=== PATIENT | male | born 1980 | race Caucasian/White ===

== ENCOUNTER 2016-09-27 09:30 | Inpatient (IN) | payer OTHER ==
[~2016-09-27] VITALS: Ht 185.4 cm; Wt 99.3 kg
[2016-09-27] MEDS ORDERED: CLONAZEPAM0.125 M1 PO (10:06)
[2016-09-27] MEDS ORDERED: OXYCODONE-ACET1 EAC1 PO (10:07)
[2016-09-27] MEDS ORDERED: FLUOXETINE HCL20 M2 PO (10:07)
--- NOTE | 2016-09-27 10:38 | ED UPPER/LOWER EXTREMITY COMPL ---
History of Present Illness General Chief Complaint: Low Back Pain/Injury Stated Complaint: BACK/ARMS PAIN Source: patient, family Exam Limitations: no limitations Vital Signs & Intake/Output Vital Signs & Intake/Output Vital Signs Date Time Temp Pulse Resp B/P Pulse O2 O2 Flow FiO2 Ox Delivery Rate 09/27 1517 98.6 104 18 118/74 99 Room Air 09/27 1328 138/80 09/27 1053 98.3 89 18 132/80 100 Room Air 09/27 0945 97.2 104 20 127/83 97 Room Air Allergies Coded Allergies: No Known Allergies (09/27/16) Reconcile Medications Clonazepam 0.125 MG TAB.RAPDIS 1 TAB PO DAILY ANXIETY (Reported) Fluoxetine HCl 20 MG CAPSULE 3 CAP PO DAILY MENTAL HEALTH (Reported) Oxycodone HCl/Acetaminophen (Oxycodone-Acetaminophen 10-325) 10 MG-325 MG TABLET 1 TAB PO Q4P PRN PAIN (Reported) Triage Note: PT C/O LEFT LOWER BACK PAIN AND LEFT ARM PAIN SINCE FRIDAY. STATES PAIN WENT AWAY WITH HEATING PAD AND TYLENOL BUT CAME BACK AND WAS UNABLE TO SLEEP LAST NIGHT. PT HAD RECENT ABSCESS DRAINED BY DR PERDUE IN LEFT LEG Triage Nurses Notes Reviewed? yes HPI: 35-year-old male with multiple medical complaints. He states that 2 weeks ago he had an abscess drained from his left proximal calf region. It was a large abscess and significantly painful. He has been on 10 mg Percocet since then. He states that he could not walk much and spent most of the time in the bed and his leg was largely swollen. Approximately 3 or 4 days ago patient noted a significant improvement in the swelling in his legs however he started getting some right-sided mid to low back pain along with right-sided shoulder pain anterior aspect. The next day he then developed intermittent left-sided shoulder pain and pain into the anterior chest region that was worse when he was taking a deep breath. He also experiences mild dyspnea on exertion. He denies any cough or hemoptysis. His calf pain from his surgery has resolved completely. He was seen by his orthopedist yesterday who recommended that if his symptoms continue to go to the ER. There is no history of DVT or PE in the family. He denies any fever or flulike illness. The Percocet has been minimally effective for his pain (GERARDO WEATHERSCHICO) Past History Travel History Traveled to [place] past 21 day No Medical History Any Pertinent Medical History? see below for history Psychiatric: anxiety Surgical History Surgical History: LEFT CALF ABSCESS i&d Psychosocial History What is your primary language Latvian Tobacco Use: Never used ETOH Use: occasional use Illicit Drug Use: denies illicit drug use Family History Hx Contributory? No (CHICO JONES) Review of Systems Review of Systems Constitutional: Reports: see HPI. EENTM: Reports: no symptoms. Respiratory: Reports: no symptoms. Gastrointestinal/Abdominal: Reports: no symptoms. Genitourinary: Reports: no symptoms. Skin: Reports: no symptoms. Neurological/Psychological: Reports: no symptoms. Hematologic/Endocrine: Reports: no symptoms. Immunological: Reports: no symptoms. All Other Systems: Reviewed and Negative (CHICO JONES) Physical Exam Physical Exam General Appearance: well developed/nourished, anxious, mild distress Head: atraumatic Eyes: Bilateral: PERRL, EOMI. Ears, Nose, Throat: normal pharynx, normal ENT inspection, hearing grossly normal Neck: normal inspection, supple Cardiovascular/Respiratory: normal breath sounds, no respiratory distress, tachycardia Back: normal inspection Leg Left: normal range of motion, normal inspection, HEALED ABSCESS SITE LEFT SUPERIOR POSTERIOR MEDIAL CALF REGION Skin: intact, normal color, warm/dry Lymphatic: no anterior cervical louie Comments: Low back with mild right-sided paravertebral lumbar tenderness. Range of motion is full. No rashes. No midline tenderness. (CHICO JONES) Progress Differential Diagnosis: arterial insufficiency, cellulitis, CHF, compartment syndrome, contusion, dislocation, DVT, fracture, gout, septic arthritis, sprain, tendon injury Plan of Care: Orders Procedure Date/time Status CBC WITHOUT DIFFERENTIAL 09/28 06 Active BASIC ELECTROLYTES PLUS BUN&CR 09/28 06 Active Regular Diet 09/27 L Complete Heart Healthy Diet 09/27 D Active Add-on Test (ER Only) 09/27 1511 Active Pathway - chart 09/27 1510 Active House Staff 09/27 1510 Active Patient Data 09/27 1510 Active ECHOCARDIOGRAM 09/27 1510 Active Admit to inpatient 09/27 1458 Active Vital Signs 09/27 1458 Active Code Status 09/27 1458 Active Admit to inpatient 09/27 1438 Active Patient Data 09/27 1416 Active PARTIAL THROMBOPLASTIN TIME 09/27 1038 Complete PROTHROMBIN TIME 09/27 1038 Complete EKG 09/27 1038 Active Saline Lock 09/27 1033 Active TROPONIN LEVEL 09/27 1033 Complete COMPREHENSIVE METABOLIC PANEL 09/27 1033 Complete CBC WITHOUT DIFFERENTIAL 09/27 1033 Complete B-TYPE NATRIURETIC PEP (BNP) 09/27 1033 Complete Intake & Output 09/27 1002 Active Telemetry/Order Processing Clerk 09/27 UNK Active Hemoccult 09/27 UNK Active Current Medications Sig/Cristina Start time Last Medication Dose Stop Time Status Admin Fluoxetine HCl 60 MG AT BEDTIME 09/27 2200 AC (Prozac) Acetaminophen 650 MG Q6P PRN 09/27 151 AC (Tylenol) Acetaminophen 1,000 MG Q6P PRN 09/27 1515 AC (Ofirmev) Clonazepam 0.125 MG DAILY NEEDED 09/27 151 AC (KlonoPIN) 10/04 151 Oxycodone/ 1 TAB Q6P PRN 09/27 151 AC Acetaminophen (Percocet) Laboratory Tests 09/27/16 1038: Anion Gap 14, Estimated GFR > 60, BUN/Creatinine Ratio 20.0, Glucose 104 H, Calcium 9.8, Total Bilirubin 1.1, AST 22, ALT 52, Alkaline Phosphatase 55, Troponin I < 0.01, Hby-B-Ttwzondhzfp Pept 36.5, Total Protein 7.5, Albumin 4.4, Globulin 3.1, Albumin/Globulin Ratio 1.4, PT 12.6 H, INR 1.20 H, APTT 33, CBC w Diff NO MAN DIFF REQ, RBC 4.55 L, MCV 86.5, MCH 28.9, RDW 12.4, MPV 9.0, Gran % 76.4 H, Lymphocytes % 12.9 L, Monocytes % 9.9 H, Eosinophils % 0.5, Basophils % 0.3, Absolute Granulocytes 8.4 H, Absolute Lymphocytes 1.4, Absolute Monocytes 1.1 H, Absolute Eosinophils 0.1, Absolute Basophils 0, PUBS MCHC 33.4 Diagnostic Imaging: Viewed by Me: CT Scan, Ultrasound. Discussed w/RAD: CT Scan, Ultrasound. Radiology Impression: PATIENT: DMITRY PADILLA PRESENT AGE: 35 PATIENT ACCOUNT NO: [id number] : 82 LOCATION: [facility] ORDERING PHYSICIAN: CHICO WEATHERS SERVICE DATE: 09/27/16 EXAM TYPE: CAT - CTA CHEST-PULMONARY EMBOLISM EXAMINATION: CT ANGIOGRAM CHEST WITHOUT AND WITH CONTRAST (CT PULMONARY ANGIOGRAM FOR PE) CLINICAL INFORMATION: Shortness of breath, tachycardia, chest pain. COMPARISON: None TECHNIQUE: Prior to contrast administration, noncontrast localization images were obtained. Subsequently, multidetector volumetric imaging was performed from the thoracic inlet to below the diaphragms following the administration of 120 mL Optiray 380 intravenous contrast. No contrast reaction reported. Sagittal, coronal, and MIP oblique sagittal reformatted images were obtained on the CT workstation, uploaded to PACS, and reviewed. TOTAL EXAM DLP: 1072 mGy-cm FINDINGS: QUALITY OF STUDY/ CONTRAST BOLUS: Satisfactory after repeat with shorter delay. PULMONARY ARTERIES : Pulmonary emboli are present within right posteromedial and anterolateral lower lobe segmental arteries. In addition, there is an embolus in the apical pulmonary arterial segment to the right upper lobe. No central PE or left-sided emboli are demonstrated. THORACIC AORTA: No aneurysm or dissection. LUNG: There is consolidation in the left lower lobe with ill-defined peripheral opacity in the lingula anteriorly and the posterior right lung base which may represent multifocal pneumonia and/or atelectasis. PLEURA: Trace bilateral pleural effusions. MEDIASTINUM: Normal heart size. No pericardial effusion. No hilar or mediastinal lymphadenopathy. No evidence of septal bowing or right heart strain. CHEST WALL/AXILLA: No axillary or internal mammary lymphadenopathy. OSSEOUS STRUCTURES: No acute or suspicious osseous abnormality. UPPER ABDOMEN: Unremarkable. No reflux of contrast into the hepatic veins to suggest elevated right heart pressures. This critical result was discussed with Dr. Lara at 1:05 PM on 09/27/2016 and it was ascertained that the content and urgency of the report was understood at the time of direct communication. IMPRESSION: Positive pulmonary embolism study with segmental emboli in the right lower lobe and right upper lobe pulmonary arterial branches. Multifocal consolidation and/or atelectasis, most prominent at the left lung base, with trace bilateral pleural effusions. VTE: Positive DICTATED BY: KEARA THAPA MD DATE/TIME DICTATED: 09/27/161300 ASSESSMENT EXPERT:SIMEON DATE/TIME TRANSCRIBED:09/27/161300 , SERVICE DATE: 09/27/16 EXAM TYPE: US - US-EXT BILAT VENOUS DOPPLER EXAMINATION: US TRIPLEX LOWER EXTREMITY, BILATERAL CLINICAL INFORMATION: Positive pulmonary embolus on CTA chest. Assess for DVT. COMPARISON: CT of the chest obtained earlier 09/27/2016. TECHNIQUE: Color-flow triplex imaging with spectral analysis and compression Doppler were performed on the bilateral lower extremities. FINDINGS: Right lower extremity: Respiratory variation, normal compression and augmented flow are noted throughout the right lower extremity. The visualized common femoral vein, superficial femoral vein, profunda femoral vein, popliteal vein and midcalf peroneal and posterior tibial venous segments show no evidence of deep venous thrombosis. There is no focal fluid collection. Left lower extremity: Respiratory variation, normal compression and augmented flow are noted in the visualized visualized common femoral vein, superficial femoral vein , profunda femoral vein and popliteal vein. The mid calf peroneal and posterior tibial venous segments do not show flow, and the findings are consistent with deep vein thrombosis in the calf veins. There is no focal fluid collection. IMPRESSION: 1. There is evidence of deep vein thrombosis in the left calf veins. No other thrombus is demonstrated in the left lower extremity. 2. Normal Triplex scan without evidence of deep venous thrombosis involving the right lower extremity. 3. There are no focal fluid collections. 4. This critical result was discussed with Chico Long by telephone on 09/27/2016 at 2:25 PM and it was ascertained that the content and urgency of the report was understood at the time of direct communication. DICTATED BY: GUSTAVO GR MD DATE/TIME DICTATED: 1441 ASSESSMENT EXPERT:SIMEON Initial ED EKG: NSR, rate (99), nonspecific ST T wave chg (INF) Rhythm Strip: normal sinus rhythm (90-100BPM) Comments: Concern for pulmonary embolism, patient recent procedure and was immobile for a while, had a significant amount of leg swelling. The patient which has now resolved however after the swelling resolves he started getting his vague symptoms of chest pain and back pain Along with dyspnea on exertion . He denies any cough or fever. We'll CTA Patient became anxious especially with blood draw, he had a mild near vasovagal syncope. He was given 0.5 mg of Ativan IV Discussed with patient laboratory values and ekg unremarkable, awaiting CT scan. CTA positive for pulmonary embolisms 2 on the right side. Discussed the patient and his mother. We'll place on heparin IV, rectal exam was deferred, discussed risks of anticoagulation (CHICO JONES) Departure Departure Disposition: STILL A PATIENT Condition: Stable Clinical Impression Primary Impression: Pulmonary embolus, right Secondary Impressions: Left leg DVT Qualifiers: Affected thrombotic vein of extremity: unspecified lower extremity distal vein Chronicity: acute Qualified Code: I82.4Z2 - Acute embolism and thrombosis of unspecified deep veins of left distal lower extremity Referrals: JULIA JIANG,NICKY Tripp (PCP/Family) Departure Forms: Customer Survey General Discharge Information Admission Note Spoke With: ABRAHAM ROWE MD Documentation of Exam: Documentation of any treatments & extenuating circumstances including Concerns Regarding Discharge (functional status, medication knowledge or non-compliance, living conditions, etc.) that warrant an admission rather than observation: Positive PE 2 right side. Will need anticoagulation, cardiac monitoring, echo, bilateral venous ultrasounds and coagulation workup. (CHICO JONES) PA/RUBBER MILL OPERATOR Co-Sign Statement Statement: ED Attending supervision documentation- [X] I saw and evaluated the patient. I have also reviewed all the pertinent lab results and diagnostic results. I agree with the findings and the plan of care as documented in the PA's/RUBBER MILL OPERATOR's documentation. [] I have reviewed the ED Record and agree with the PA's/RUBBER MILL OPERATOR's documentation. [] Additions or exceptions (if any) to the PAs/RUBBER MILL OPERATOR's note and plan are summarized below: [] I've seen and personally examined the patient and I agree with the PAs evaluation. He is in no significant distress. CT scan shows pulmonary embolism. (NICOLÁS CHRISTIANSON,RYLAND Raman) Critical Care Note Critical Care Note Critical Care Time: 30-74 min Comments: FRANKO LARA (CHICO JONES)
[2016-09-27 10:54] LABS: ABSOLUTE BASOPHIL COUNT 0 /CUMM (0.0-0.2); ABSOLUTE EOSINOPHIL COUNT 0.1 /CUMM (0.0-0.7); ABSOLUTE GRANULOCYTE CT 8.4 /CUMM (1.4-6.5); ABSOLUTE LYMPH COUNT 1.4 /CUMM (1.2-3.4); ABSOLUTE MONOCYTE COUNT 1.1 /CUMM (0.10-0.60); BASOPHIL % 0.3 % (0.0-2.0); EOSINOPHIL % 0.5 % (0-5); GRANULOCYTE % 76.4 % (42.2-75.2); HEMATOCRIT 39.3 % (42-52); MEAN CORPUSCULAR HGB 28.9 PG (27.0-31.0); MEAN CORPUSCULAR HGB CONC 33.4 G/DL (33.0-37.0); MEAN CORPUSCULAR VOLUME 86.5 FL (80.0-94.0); PLATELET COUNT 204 /CUMM (130-400); RBC DISTRIBUTION WIDTH 12.4 % (11.5-14.5); RED BLOOD CELL CT 4.55 /CUMM (4.70-6.10); WHITE BLOOD CELL COUNT 10.9 /CUMM (4.8-10.8)
--- NOTE | 2016-09-27 13:25 | CT SCAN REPORT ---
EXAMINATION: CT ANGIOGRAM CHEST WITHOUT AND WITH CONTRAST (CT PULMONARY ANGIOGRAM FOR PE) CLINICAL INFORMATION: Shortness of breath, tachycardia, chest pain. COMPARISON: None TECHNIQUE: Prior to contrast administration, noncontrast localization images were obtained. Subsequently, multidetector volumetric imaging was performed from the thoracic inlet to below the diaphragms following the administration of 120 mL Optiray 380 intravenous contrast. No contrast reaction reported. Sagittal, coronal, and MIP oblique sagittal reformatted images were obtained on the CT workstation, uploaded to PACS, and reviewed. TOTAL EXAM DLP: 1072 mGy-cm FINDINGS: QUALITY OF STUDY/CONTRAST BOLUS: Satisfactory after repeat with shorter delay. PULMONARY ARTERIES: Pulmonary emboli are present within right posteromedial and anterolateral lower lobe segmental arteries. In addition, there is an embolus in the apical pulmonary arterial segment to the right upper lobe. No central PE or left-sided emboli are demonstrated. THORACIC AORTA: No aneurysm or dissection. LUNG: There is consolidation in the left lower lobe with ill-defined peripheral opacity in the lingula anteriorly and the posterior right lung base which may represent multifocal pneumonia and/or atelectasis. PLEURA: Trace bilateral pleural effusions. MEDIASTINUM: Normal heart size. No pericardial effusion. No hilar or mediastinal lymphadenopathy. No evidence of septal bowing or right heart strain. CHEST WALL/AXILLA: No axillary or internal mammary lymphadenopathy. OSSEOUS STRUCTURES: No acute or suspicious osseous abnormality. UPPER ABDOMEN: Unremarkable. No reflux of contrast into the hepatic veins to suggest elevated right heart pressures. This critical result was discussed with Dr. Lara at 1:05 PM on 09/27/2016 and it was ascertained that the content and urgency of the report was understood at the time of direct communication. IMPRESSION: Positive pulmonary embolism study with segmental emboli in the right lower lobe and right upper lobe pulmonary arterial branches. Multifocal consolidation and/or atelectasis, most prominent at the left lung base, with trace bilateral pleural effusions. VTE: Positive
--- NOTE | 2016-09-27 14:48 | ULTRASOUND REPORT ---
EXAMINATION: US TRIPLEX LOWER EXTREMITY, BILATERAL CLINICAL INFORMATION: Positive pulmonary embolus on CTA chest. Assess for DVT. COMPARISON: CT of the chest obtained earlier 09/27/2016. TECHNIQUE: Color-flow triplex imaging with spectral analysis and compression Doppler were performed on the bilateral lower extremities. FINDINGS: Right lower extremity: Respiratory variation, normal compression and augmented flow are noted throughout the right lower extremity. The visualized common femoral vein, superficial femoral vein, profunda femoral vein, popliteal vein and midcalf peroneal and posterior tibial venous segments show no evidence of deep venous thrombosis. There is no focal fluid collection. Left lower extremity: Respiratory variation, normal compression and augmented flow are noted in the visualized visualized common femoral vein, superficial femoral vein, profunda femoral vein and popliteal vein. The mid calf peroneal and posterior tibial venous segments do not show flow, and the findings are consistent with deep vein thrombosis in the calf veins. There is no focal fluid collection. IMPRESSION: 1. There is evidence of deep vein thrombosis in the left calf veins. No other thrombus is demonstrated in the left lower extremity. 2. Normal Triplex scan without evidence of deep venous thrombosis involving the right lower extremity. 3. There are no focal fluid collections. 4. This critical result was discussed with Chico Long by telephone on 09/27/2016 at 2:25 PM and it was ascertained that the content and urgency of the report was understood at the time of direct communication.
--- NOTE | 2016-09-27 15:03 | History & Physical ---
ZARIA GIORDANO 09/27/16 1502: General Information and HPI MD Statement: I have seen and personally examined DMITRY PADILLA and documented this H&P. The patient is a 35 year old M who presented with a patient stated chief complaint of [chest pain]. Source of Information: patient, family Exam Limitations: no limitations History of Present Illness: Mr. Padilla is a 35 year old woman with significant past medical history of anxiety disorder and obsessive-compulsive disorder, who presented to the hospital emergency department complaining of chest pain, back pain associated with some dyspnea. He states that approximately 2 weeks ago he had an abscess drained on his left posterior calf. Due to the pain, he states that for around 1.5 weeks he was bedbound and stayed out of work. He states that he had family and friends help him up until 2 days ago where the pain was well-controlled. He states that he ran some errands and noticed that he had right-sided back pain. The pain worsened, and eventually radiated to the left side of his chest and arm. He saw his orthopedic surgeon yesterday who gave him 4 tablets of Percocet and advised him to come the emergency department if his pain worsened. The patient states that his chest pain was dull and deep in nature, worse with deep inspiration and not exacerbated by exercise. Not positional. No pain with baseline breathing. He also endorses mild dyspnea on exertion. He denies any cough or hemoptysis. He denies any more leg pain. Family hx is positive for a maternal aunt w a DVT (she was in the [employer] and flew without ambulation to [place] multiple times). No other FHx of clotting or bleeding disorders. Social hx -ve for smoking or alcohol intake. In the emergency department Vitals on admission were temperature 97.2, pulse rate 104, respiratory rate 20, blood pressure 127/83 saturating 97% on room air. Physical exam reveals an age-appropriate gentleman lying in bed in no acute distress. NG exam negative. Heart exam S1-S2 positive, tachycardia noted. No murmurs rubs or gallops noted. Lungs are clear to auscultation but he does have quite inspiration. Abdomen soft nontender. No CVA tenderness. Extremities benign. Healing incision on the left posterior calf. No increased swelling in the left calf compared to the right. No warmth noted. No dilated veins appreciated. Patient denied rectal examination for stool guaiac. Calculated Well's score was 7.5. In the emergency department, labs were significant for H&H 13.1/39.3. White blood cell count 10.9. Basic metabolic panel revealed no abnormality. INR is 1.2. CT of the chest revealed positive pulmonary embolism with segmental emboli in the right lower and upper lobes. Some atelectasis versus consolidation was noted at the lung left base with bilateral trace pleural effusions. Duplex ultrasound revealed evidence of deep vein thrombosis in the left calf veins. Problem list/assessment plan * Acute pulmonary embolism with DVT in the LLE * Evidence of PE and DVT on imaging * Patient has been heparinized based on weight * Titrate according to 2 times the upper limit of normal pTT * Most patients with acute PE can usually be treated in the outpt setting, with anticoagulation (eg. lovenox 1.5mg/kg daily or 1.0 mg/kg BID), but we will assess him for right heart strain with an echocardiogram, so we will admit to inpatient. * Continue IV heparin for now and consider giving lovenox or one of the novel anticoagulants in the outpt setting. * Guiac all stools Anxiety/OCD * Continue fluoxetine and clonazepam home doses FULL CODE regular diet pain path as ordered. Allergies/Medications Allergies: Coded Allergies: No Known Allergies (09/27/16) Home Med list Clonazepam 0.125 MG TAB.RAPDIS 1 TAB PO DAILY ANXIETY (Reported) Fluoxetine HCl 20 MG CAPSULE 3 CAP PO DAILY MENTAL HEALTH (Reported) Oxycodone HCl/Acetaminophen (Oxycodone-Acetaminophen 10-325) 10 MG-325 MG TABLET 1 TAB PO Q4P PRN PAIN (Reported) Past History Travel History Traveled to [place] past 21 day No Medical History Psychiatric: anxiety Surgical History Surgical History: LEFT CALF ABSCESS i&d Past Family/Social History Psychosocial History ETOH Use: occasional use Illicit Drug Use: denies illicit drug use Review of Systems Review of Systems Constitutional: Reports: see HPI. Exam & Diagnostic Data Last 24 Hrs of Vital Signs/I&O Vital Signs Date Time Temp Pulse Resp B/P Pulse O2 O2 Flow FiO2 Ox Delivery Rate 09/27 1517 98.6 104 18 118/74 99 Room Air 09/27 1328 138/80 09/27 1053 98.3 89 18 132/80 100 Room Air 09/27 0945 97.2 104 20 127/83 97 Room Air Intake & Output 09/27 1600 09/27 0800 09/27 0000 Intake Total Output Total Balance Patient 99.337 kg Weight Last 24 Hrs of Labs/Jak: Laboratory Tests 09/27/16 1038: Anion Gap 14, Estimated GFR > 60, BUN/Creatinine Ratio 20.0, Glucose 104 H, Calcium 9.8, Total Bilirubin 1.1, AST 22, ALT 52, Alkaline Phosphatase 55, Troponin I < 0.01, Oel-Y-Adttijyufmc Pept 36.5, Total Protein 7.5, Albumin 4.4, Globulin 3.1, Albumin/Globulin Ratio 1.4, PT 12.6 H, INR 1.20 H, APTT 33, CBC w Diff NO MAN DIFF REQ, RBC 4.55 L, MCV 86.5, MCH 28.9, RDW 12.4, MPV 9.0, Gran % 76.4 H, Lymphocytes % 12.9 L, Monocytes % 9.9 H, Eosinophils % 0.5, Basophils % 0.3, Absolute Granulocytes 8.4 H, Absolute Lymphocytes 1.4, Absolute Monocytes 1.1 H, Absolute Eosinophils 0.1, Absolute Basophils 0, PUBS MCHC 33.4 Assessment/Plan Assessment: see above As Ranked By This Provider Problem List: 1. Pulmonary embolus, right 2. Left leg DVT Qualifiers Affected thrombotic vein of extremity: unspecified lower extremity distal vein Chronicity: acute Qualified Code: I82.4Z2 - Acute embolism and thrombosis of unspecified deep veins of left distal lower extremity Core Measures/Miscellaneous Acute Coronary Syndrome ACS Diagnosis: No Cerebrovascular Accident CVA/TIA Diagnosis: No Congestive Heart Failure CHF Diagnosis: No Venous Thromboembolism VTE Risk Factors: Acute medical illness No [facility] VTE prophylaxis d/t: No contraindications No VTE Pharm Prophylaxis d/t: No contraindications VTE Diagnosis: Yes VTE Type: Pulmonary Embolism VTE Confirmed by (Test): CT CHEST ANGIOGRAM Severe Sepsis Severe Sepsis Present: No Septic Shock Septic Shock Present: No Miscellaneous Documentation Attending Case Discussed With: BARBARA ZAPATA MD Primary Care Physician: NICKY DUMONT MD Patient sees these Specialists na Level of Patient Care: Telemetry ABRAHAM ROWE MD 09/27/16 1638: Attending MD Review Statement Attending Statement Attending MD Statement: examined this patient, discuss w/resident/PA/VARNISH FINISHER, agreed w/resident/PA/VARNISH FINISHER, reviewed EMR data (avail) Attending Assessment/Plan: Agree with resident assessment and plan. Heparin drip, echocardiogram, pain control, monitor oxygen saturation, will convert to PO when improved and echocardiogram complete. Continue home medications.
[2016-09-27 15:27] LABS: PT 12.6 SEC (9.4-12.5); PTT 33 SEC (25-37)
--- NOTE | 2016-09-27 16:39 | Admission Certification ---
Admission Certification Certification Statement - As attending physician, I certify that at the time of - admission, based on clinical presentation, severity of - symptoms, need for further diagnostic testing and - therapeutic interventions, and risk of adverse outcomes - without in-hospital treatment, in my clinical assessment, - this patient requires an acute hospital stay for a minimum - of two nights or longer. I have also considered psychsocial - factors such as support system, advanced age, financial - issues, cognitive issues, and failed out-patient treatments, - past re-admission history, safety of patient, and lack of - compliance as applicable. Specific rationale supporting this admission is: DVT with acute pulmonary embolism and chest pain
[2016-09-27 20:40] VITALS: BP 120/80
[2016-09-27 23:13] LABS: PTT 39 SEC (25-37)
[2016-09-28 00:40] VITALS: BP 104/72
[2016-09-28 08:08] VITALS: BP 110/80
--- NOTE | 2016-09-28 08:20 | PN- Housestaff ---
Subjective Follow-up For: DVT of left calf vein and Pulmonary embolism of right lower lobe and right upper lobe Complaints: no complaints Tele-Events Since Last Visit: Normal sinus rhythm, heart rate 85-91 Subjective: Patient is seen and examined at the bedside. He was feeling much better than before. He denies any difficulty in the breathing. Denies any headache, nausea, chest pain. Review of Systems Constitutional: Denies: no symptoms. Comments: Patient denies any difficulty in the breathing Objective Last 24 Hrs of Vital Signs/I&O Vital Signs Date Time Temp Pulse Resp B/P Pulse O2 O2 Flow FiO2 Ox Delivery Rate 09/28 0808 98.4 79 16 110/80 95 Nasal 2.0L Cannula 09/28 0800 95 Nasal 2.0L Cannula 09/28 0040 98.8 94 18 104/72 95 Room Air 09/28 0000 97 Nasal 2.0L Cannula 09/27 2040 99.2 102 16 120/80 93 Room Air 09/27 1902 99.1 112 16 116/70 92 Room Air Intake & Output 09/28 1600 09/28 0800 09/28 0000 Intake Total 391.2 584 Output Total 400 Balance -400 391.2 584 Intake, IV 271.2 104 Intake, Oral 120 480 Output, Urine 400 Physical Exam General Appearance: Alert, Oriented X3, Cooperative, No Acute Distress Skin: there is 5-10 centimeter hard vein/scar clare on the posterior side of left popliteal fossa HEENT: Atraumatic, PERRLA, EOMI Cardiovascular: Normal S1, Normal S2 Lungs: Normal Air Movement, right middle and lower lobe collapse Abdomen: Soft, No Tenderness Neurological: Normal Speech Extremities: No Clubbing, No Cyanosis, No Edema Vascular: Normal Pulses, Pulses Symmetrical Assessment/Plan Assessment: Patient is a 35-year-old male with significant past medical history of anxiety, OCD who presented to the hospital emergency department complaining of chest pain , back pain associated with some dyspnea.He states that approximately 2 weeks ago he had an abscess drained on his left posterior calf. Due to the pain, he states that for around 1.5 weeks he was bedbound and stayed out of work. CTA chest -Positive pulmonary embolism study with segmental emboli in the right lower lobe and right upper lobe pulmonary arterial branches Plan - DVT of left calf vein and Pulmonary embolism of right lower lobe and right upper lobe * Oxygen inhalation to keep SPO2 more than 92% * We we will start patient on Eliquis 5 milligrams twice a day * We will stop the heparin drip after giving 1 dose of Eliquis * TRC/nebulization * Pain medication-Percocet as needed * Early ambulation Depression - patient denies SI/HI. * Tablet fluoxetine 60 milligrams PO OD * Tablet clonidine 0.125 milligrams daily as needed Diet-heart healthy diet DVT prophylaxis -Eliquis CODE STATUS-full code Problem List: 1. Left leg DVT 2. Pulmonary embolus, right Pain Ratin Pain Location: Chest and left lower leg Pain Goal: Remain pain free Pain Plan: [id number] Tomorrow's Labs & Rationales: none DVT/Prophylaxis: mechanical, pharmacological
[2016-09-28 08:25] LABS: ABSOLUTE BASOPHIL COUNT 0 /CUMM (0.0-0.2); ABSOLUTE EOSINOPHIL COUNT 0.2 /CUMM (0.0-0.7); ABSOLUTE GRANULOCYTE CT 7.1 /CUMM (1.4-6.5); ABSOLUTE LYMPH COUNT 1.6 /CUMM (1.2-3.4); BASOPHIL % 0.4 % (0.0-2.0); EOSINOPHIL % 1.6 % (0-5); GRANULOCYTE % 72.1 % (42.2-75.2); HEMATOCRIT 37.6 % (42-52); MEAN CORPUSCULAR HGB 28.6 PG (27.0-31.0); MEAN CORPUSCULAR HGB CONC 32.8 G/DL (33.0-37.0); MEAN CORPUSCULAR VOLUME 87.2 FL (80.0-94.0); MEAN PLATELET VOLUME 9.6 FL (7.4-10.4); PLATELET COUNT 202 /CUMM (130-400); RBC DISTRIBUTION WIDTH 12.3 % (11.5-14.5); RED BLOOD CELL CT 4.32 /CUMM (4.70-6.10); WHITE BLOOD CELL COUNT 9.9 /CUMM (4.8-10.8)
[2016-09-28 08:36] LABS: PTT 65 SEC (25-37)
--- NOTE | 2016-09-28 13:19 | PN- Att Addend ---
Attending Addendum Attending Brief Note Patient seen and examined. Resting comfortably in bed. Complains of on and off sharp chest pain with movements. His using oxygen for comfort, denies any shortness of breath. This is a 35-year-old male with recent cardiac abscess status post incision and drainage at [facility], which she was bed bound for almost 1-1/2 week because of pain, resented with leg swelling and chest pain, found to have evidence of DVT in the left calf veins, and segmental emboli in right lower lobe and right upper lobe pulmonary arterial branches. Patient is currently on IV heparin drip. Alert, awake, oriented 3 Heart exam-S1, S2 heard normal, no murmur. Lungs: Clear to auscultations Abdomen: Soft, nontender nondistended Extremities: No edema, no tenderness bilateral lower extremities. Surgical scar noted on the left upper calf region. Switch to Eliquis today. Please make sure Eliquis is covered by his insurance prior to switching. Discontinue heparin drip after the first dose of Eliquis. Patient still has ongoing chest pain and some discomfort breathing, we'll continue oxygen for now. Reevaluate the need for oxygen tomorrow morning. Continue Percocet for pain add bowel regimen to avoid constipation. Encourage ambulation. As it is a provoked VTE, we will continue Eliquis for 3 months. Please follow-up the echo results.
[2016-09-28] MEDS ORDERED: ELIQUIS5 M2 PO (14:05)
[2016-09-28 16:15] VITALS: BP 106/58
[2016-09-28 23:34] VITALS: BP 112/70
[2016-09-29 07:45] VITALS: BP 102/82
--- NOTE | 2016-09-29 08:44 | PN- Housestaff ---
See Addendum MJ PARRISH 09/29/16 0844: Subjective Follow-up For: DVT of left calf vein and Pulmonary embolism Complaints: no complaints Tele-Events Since Last Visit: Normal sinus rhythm. Heart rate between 80 and 100. Subjective: Patient was seen and examined today. Patient alert, awake, oriented. No active complaint. Review of Systems Constitutional: Denies: chills, fever, weakness. Cardiovascular: Denies: chest pain, palpitations. Respiratory: Denies: cough, short of breath, wheezing. Gastrointestinal: Denies: abdominal pain, diarrhea, nausea, bloody stool, vomiting. Genitourinary: Denies: hematuria, pain. Objective Last 24 Hrs of Vital Signs/I&O Vital Signs Date Time Temp Pulse Resp B/P Pulse O2 O2 Flow FiO2 Ox Delivery Rate 09/29 0745 98.6 92 16 102/82 93 Nasal 2.0L Cannula 09/29 0000 Nasal 2.0L Cannula 09/28 2334 99.9 89 18 112/70 95 Nasal 2.0L Cannula 09/28 1615 98.2 85 20 106/58 98 Room Air 09/28 1600 98 Room Air Intake & Output 09/29 1600 09/29 0800 09/29 0000 Intake Total 300 400 Output Total Balance 300 400 Intake, IV 0 Intake, Oral 300 400 Number 0 Bowel Movements Physical Exam General Appearance: Alert, Oriented X3, Cooperative, No Acute Distress HEENT: PERRLA, EOMI Neck: Supple Cardiovascular: Regular Rate, Normal S1, Normal S2 Lungs: Normal Air Movement Abdomen: Normal Bowel Sounds, Soft, No Tenderness Extremities: No Cyanosis, No Edema Current Medications: Current Medications Sig/Cristina Start time Last Medication Dose Route Stop Time Status Admin Acetaminophen 650 MG .STK-MED ONE 09/28 1801 DC PO 09/28 1802 Acetaminophen 650 MG Q6P PRN 09/27 1515 AC 09/28 PO 1803 Acetaminophen 1,000 MG Q6P PRN 09/27 1515 AC IV Apixaban 10 MG BID 09/28 1254 AC 09/29 PO 0857 Clonazepam 0.125 MG DAILY NEEDED 09/27 1515 AC 09/27 PO 10/04 1514 2121 Fluoxetine HCl 60 MG AT BEDTIME 09/27 2200 AC 09/28 PO 2139 Heparin Sodium 25,000 UNIT Q24H 09/27 1400 DC 09/27 (Porcine) IV 1518 Sodium Chloride 500 ML Oxycodone/ 1 TAB Q6P PRN 09/27 1515 AC 09/28 Acetaminophen PO 2140 Sodium Chloride 2 SPRAY Q4P PRN 09/29 0915 AC 09/29 ANITHA 1053 Last 24 Hrs of Lab/Jak Results Last 24 Hrs of Labs/Mics: Laboratory Tests 09/28/16 1800: APTT Cancelled Assessment/Plan Assessment: Patient is a 35-year-old male with significant past medical history of anxiety, OCD who presented to the hospital emergency department complaining of chest pain , back pain associated with some dyspnea.He states that approximately 2 weeks ago he had an abscess drained on his left posterior calf. Due to the pain, he states that for around 1.5 weeks he was bedbound and stayed out of work. CTA chest -Positive pulmonary embolism study with segmental emboli in the right lower lobe and right upper lobe pulmonary arterial branches Plan - DVT of left calf vein and Pulmonary embolism of right lower lobe and right upper lobe * Oxygen inhalation to keep SPO2 more than 92% * patient on Eliquis 10 milligrams twice a day * TRC/nebulization as needed. * Pain medication-Percocet as needed * Early ambulation * Echo pending, will DC the p.t as soon as echo result come back. Depression - patient denies SI/HI. * Tablet fluoxetine 60 milligrams PO OD * Tablet clonidine 0.125 milligrams daily as needed DVT prophylaxis -Eliquis CODE STATUS-full code Problem List: 1. Pulmonary embolus, right 2. Left leg DVT Pain Ratin Pain Location: left leg Pain Goal: Pain 4 or less Pain Plan: SAME Tomorrow's Labs & Rationales: NONE HELENA JIANG,[facility] 09/29/16 1145: Attending MD Review Statement Attending Statement Attending MD Statement: examined this patient, discuss w/resident/PA/RENTAL CAR FERRY DRIVER, agreed w/resident/PA/RENTAL CAR FERRY DRIVER, discussed with family, reviewed EMR data (avail), discussed with nursing, discussed with case mgmt, reviewed images, amended to note Attending Assessment/Plan: Patient sitting comfortably on bed. Still on oxygen. We can taper the oxygen down to off. He is not short of breath. Make sure the echo was done today and read, if echo looks okay without any concerns patient can be discharged home today on Eliquis.
--- NOTE | 2016-09-29 08:48 | Patient Discharge Instructions ---
Discharge Instructions General Discharge Information You were seen/treated for: shortness of breath You had these procedures: none Special Instructions: please taking the new blood thinner for the clot in your lung i.e: take Eliqui 10 mg twice daily for 7 days and then 5 mg twice daily for the next 3 months. Please contact your PCP for renewal of Eliquis within one week. PLEASE DO NOT STOP THIS MEDICATION UNTIL YOU SEE YOUR PCP. Acute Coronary Syndrome Inclusion Criteria At DC or during hospital stay patient has or had the following: ACS DIAGNOSIS No Discharge Core Measures Meds if any: Prescribed or Continued at Discharge Meds if any: NOT Prescribed or Continued at Discharge Congestive Heart Failure Inclusion Criteria At DC or during hospital stay patient has or had the following: CHF DIAGNOSIS No Discharge Core Measures Meds if any: Prescribed or Continued at Discharge Meds if any: NOT Prescribed or Continued at Discharge Cerebrovascular accident Inclusion Criteria At DC or during hospital stay patient has or had the following: CVA/TIA Diagnosis No Discharge Core Measures Meds if any: Prescribed or Continued at Discharge Meds if any: NOT Prescribed or Continued at Discharge Venous thromboembolism Inclusion Criteria VTE Diagnosis Yes VTE Type Pulmonary Embolism VTE Confirmed by (Test) CT CHEST ANGIOGRAM Discharge Core Measures - Per Current guidelines, there needs to be overlap - treatment for the first 5 days of Warfarin therapy. - If discharged on Warfarin prior to 5 days of - overlap therapy, the patient will need to be - assessed for post discharge needs including - *Post discharge parental anticoagulation - *Warfarin and/or parental anticoagulation education - *Follow up date to check INR post discharge At least 5 days overlap therapy as Inpatient No Meds if any: Prescribed or Continued at Discharge Note: Overlap Therapy is Warfarin and Anticoagulant Meds if any: NOT Prescribed or Continued at Discharge
--- NOTE | 2016-09-29 15:31 | ECHOCARDIOGRAM REPORT ---
DMITRY PADILLA Age: 35 : 1980 Gender: M Exam Date: 09/29/2016 09:33 Exam Location: [address] Ht (in): 73 Wt (lb): 219 BSA: 2.28 BP: 102 / 82 Ordering Physician: ZARIA GIORDANO MD Referring Physician: ZARIA GIORDANO MD Technologist: Paloma Calzada [facility] Room Number: 188 Indications: ACUTE PULMONARY EMBOLISM Rhythm: Sinus Technical Quality: Good FINDINGS Left Ventricle Normal size left ventricle. Normal left ventricular wall thickness. No obvious regional wall motion abnormalities. Normal left ventricular diastolic filling pattern for age. Right Ventricle Normal right ventricular size and function. Right Atrium Normal right atrial size. Left Atrium Normal left atrial size. Mitral Valve Mild mitral annular calcification. Trace mitral regurgitation. Aortic Valve Aortic valve mildly thickened.no aortic stenosis. No aortic regurgitation. Tricuspid Valve Tricuspid valve not well visualized, grossly normal. Trace tricuspid regurgitation. No evidence of pulmonary hypertension. Pulmonic Valve Pulmonic valve not well visualized, grossly normal. Pericardium No pericardial effusion. Great Vessels Normal size aortic root. CONCLUSIONS Normal size left ventricle. Normal left ventricular wall thickness. Normal left ventricular diastolic filling pattern for age. Trace mitral regurgitation. Trace tricuspid regurgitation. Rainer Levin M.D. (Electronically Signed) Final Date: 29 September 2016 15:30 MEASUREMENTS (Male / Female) Normal Values 2D ECHO LV Diastolic Diameter PLAX 4.8 cm 4.2 - 5.9 / 3.9 - 5.3 cm LV Systolic Diameter PLAX 2.6 cm 2.1 - 4.0 cm LV Fractional Shortening PLAX 45.5 % 25 - 46 % LV Ejection Fraction 2D Teich 76.8 % IVS Diastolic Thickness 1.2 cm LVPW Diastolic Thickness 1.2 cm LV Relative Wall Thickness 0.5 RV Internal Dim ED PLAX 2.7 cm 1.9 - 3.8 cm LVOT Diameter 2.1 cm Aortic Root Diameter 3.2 cm LA Systolic Diameter LX 4.1 cm 3.0 - 4.0 / 2.7 - 3.8 cm LA Volume 38.0 cm 18 - 58 / 22 - 52 cm Ascending Aorta Diameter 3.5 cm DOPPLER AV Peak Velocity 139.0 cm/s AV Peak Gradient 7.7 mmHg AV Mean Velocity 101.0 cm/s AV Mean Gradient 5.0 mmHg AV Velocity Time Integral 27.3 cm LVOT Peak Velocity 124.0 cm/s LVOT Peak Gradient 6.2 mmHg LVOT Mean Velocity 77.9 cm/s LVOT Mean Gradient 3.0 mmHg LVOT Velocity Time Integral 24.5 cm LVOT Stroke Volume 84.9 cm AV Area Cont Eq vti 3.1 cm AV Area Cont Eq pk 3.1 cm MV Peak Velocity 90.3 cm/s MV Peak Gradient 3.3 mmHg MV Mean Velocity 56.8 cm/s MV Mean Gradient 1.0 mmHg Mitral E Point Velocity 82.4 cm/s Mitral A Point Velocity 56.3 cm/s Mitral E to A Ratio 1.5 MV PHT Velocity 92.3 cm/s MV Deceleration Hodgeman 460.0 cm/s MV Pressure Half Time 60.2 ms MV Area PHT 3.7 cm MV Deceleration Time 206.0 ms TR Peak Velocity 107.0 cm/s TR Peak Gradient 4.6 mmHg Right Atrial Pressure 5.0 mmHg Pulmonary Artery Systolic Pressu 9.6 mmHg Right Ventricular Systolic Press 9.6 mmHg PV Peak Velocity 117.0 cm/s PV Peak Gradient 5.5 mmHg PV Mean Velocity 82.2 cm/s PV Mean Gradient 3.0 mmHg PV Velocity Time Integral 25.9 cm LV E' Lateral Velocity 13.6 cm/s Mitral E to LV E' Lateral Ratio 6.1 LV E' Septal Velocity 8.2 cm/s Mitral E to LV E' Septal Ratio 10.1
[2016-09-29] MEDS ORDERED: ELIQUIS5 M2 PO ×3 (15:40→15:56)
--- NOTE | 2016-10-08 22:44 | Discharge Summary ---
Visit Information Visit Dates Admission Date: 09/27/16 Discharge Date: 09/29/16 Hospital Course Course Attending Physician: BARBARA ZAPATA MD Primary Care Physician: NICKY DUMONT MD Hospital Course: Mr. Toscano is a 35 year old woman with significant past medical history of anxiety disorder and obsessive-compulsive disorder, who presented to the hospital emergency department complaining of chest pain, back pain associated with some dyspnea secondary to pulmonary embolism. The patient was admitted to the telemtery unit where the following problems were addressed and managed. # Acute pulmonary embolism with DVT in the LLE CTA revealed positive pulmonary embolism with segmental emboli in the right lower lobe and right upper lobe pulmonary arterial branches. Venous doppler of the legs showed evidence of deep vein thrombosis in the left calf veins. No other thrombus is demonstrated in the left lower extremity. The patient was placed on heparin drip which was transitioned to Eliquis 5mg BID. Patient's echocardiogram was grossly unremarkable with normal LV size, wall thickness and diastolic filling pattern for age. There were trace mitral regurgitation and trace tricuspid regurgitation. Patient was discharged on Eliquis 10 mg twice daily for 7 days and then 5 mg twice daily for the next 3 months. He was instructed to contact his PCP for renewal of Eliquis within one week. # Anxiety/OCD Patient was kept on home meds fluoxetine and clonazepam. Allergies: Coded Allergies: No Known Allergies (09/27/16) Disposition Summary Disposition Principal Diagnosis: Pulmonary embolism Additional Diagnosis: DVT Discharge Disposition: home or self care Discharge Instructions General Discharge Information Code Status: Full Code Patient's Diet: Heart healthy Patient's Activity: As tolerated Follow-Up Instructions/Appts: please taking the new blood thinner for the clot in your lung i.e: take Eliqui 10 mg twice daily for 7 days and then 5 mg twice daily for the next 3 months. Please contact your PCP for renewal of Eliquis within one week. PLEASE DO NOT STOP THIS MEDICATION UNTIL YOU SEE YOUR PCP. Medications at Discharge Discharge Medications: Stop taking the following medications: Oxycodone HCl/Acetaminophen (Oxycodone-Acetaminophen 10-325) 10 MG-325 MG TABLET ORAL EVERY 4 HOURS NEEDED as needed for PAIN Qty = 4 Continue taking these medications: Clonazepam (Clonazepam) 0.125 MG TAB.RAPDIS 1 Tablet ORAL DAILY Qty = 30 Comments: Last Taken: 09/27/16 Time: 9 PM Fluoxetine HCl (Fluoxetine HCl) 20 MG CAPSULE 3 Capsule ORAL DAILY Qty = 270 Comments: Last Taken: 09/28/16 Time: 9 PM Start taking the following new medications: Apixaban (Eliquis) 5 MG TABLET 0 ORAL TWICE DAILY Days = 30 No Refills Instructions: TAKE 10 MG PO BID FOR 7 DAYS STARTING FROM 09/28/16-10/05/16 THEN AFTERWARDS TAKE 5 MG PO BID FOR THE TOTAL OF 3 MONTHS. Comments: Last Taken: 09/29/16 Time: 9 AM Copies To: JULIA JIANG,NICKY Tripp Attending MD Review Statement Documenting Attending: CESAR ELENA MD
== END 2016-09-29 16:18 | DRG 176 ==
LOC: ENRESERVTM → ENRESERVDT → ERH 09:30 → 1NO 14:58 → ERHI 14:58 → 1NO 19:07
PROVIDERS: Internal Medicine Cardiovascular Disease; Physician Assistant Surgical; Student in an Organized Health Care Education/Training Program; ADMIT Internal Medicine
PROC: 3E033GC Introduction of Other Therapeutic Substance into Peripheral Vein, Percutaneous Approach (ICD-10-PCS; principal; 2016-09-27)
DX: I26.99 Other pulmonary embolism without acute cor pulmonale (principal); I82.4Z2 Acute embolism and thrombosis of unspecified deep veins of left distal lower extremity; F32.9 Major depressive disorder, single episode, unspecified
CPT/HCPCS: 1NP; 36415; 82436; 93005; 93010; 93306; 93970; 96374; 96375; 99291; J0131; J1644

== ENCOUNTER 2018-03-19 06:31 | Emergency (ER) | payer OTHER ==
[~2018-03-19] VITALS: Ht 185.4 cm; Wt 99.8 kg
[~2018-03-19 06:31] MED LIST: CLONAZEPAM0.125 M1 PO; ELIQUIS5 M2 PO; FLUOXETINE HCL20 M2 PO; OXYCODONE-ACET1 EAC1 PO
[2018-03-19 07:14] LABS: ABSOLUTE BASOPHIL COUNT 0 /CUMM (0.0-0.2); ABSOLUTE EOSINOPHIL COUNT 0.2 /CUMM (0.0-0.7); ABSOLUTE GRANULOCYTE CT 4.4 /CUMM (1.4-6.5); ABSOLUTE LYMPH COUNT 2.7 /CUMM (1.2-3.4); ABSOLUTE MONOCYTE COUNT 0.6 /CUMM (0.10-0.60); BASOPHIL % 0.5 % (0.0-2.0); EOSINOPHIL % 2.4 % (0-5); GRANULOCYTE % 55.3 % (42.2-75.2); HEMATOCRIT 45.5 % (42-52); MEAN CORPUSCULAR HGB CONC 33.6 G/DL (33.0-37.0); MEAN CORPUSCULAR VOLUME 86.4 FL (80.0-94.0); MEAN PLATELET VOLUME 10.3 FL (7.4-10.4); PLATELET COUNT 194 /CUMM (130-400); RED BLOOD CELL CT 5.26 /CUMM (4.70-6.10)
--- NOTE | 2018-03-19 07:18 | ED GENERAL ADULT ---
History of Present Illness General Chief Complaint: General Adult Stated Complaint: "REALLY BAD LOWER BACK PAIN HX PE" Source: patient Exam Limitations: no limitations Vital Signs & Intake/Output Vital Signs & Intake/Output Vital Signs Date Time Temp Pulse Resp B/P B/P Pulse O2 O2 Flow FiO2 Mean Ox Delivery Rate 03/19 1015 76 124/84 03/19 0847 98.0 68 16 124/78 100 Room Air 03/19 0704 96 Room Air Room Air 03/19 0640 96.3 76 18 115/77 96 Allergies Coded Allergies: No Known Allergies (09/27/16) Reconcile Medications Clonazepam 0.125 MG TAB.RAPDIS 1 TAB PO DAILY PRN ANXIETY (Reported) Fluoxetine HCl 20 MG CAPSULE 3 CAP PO DAILY MENTAL HEALTH (Reported) Triage Note: 37YO MALE TO TRIAGE W/CO LOW BACK PAIN SINCE LAST NIGHT. STQTES " HS PE 1 1/2 YR AGO AND SYMPTOMS WERE THE SAME" Triage Nurses Notes Reviewed? yes Onset: Abrupt Duration: day(s): Timing: recent history HPI: 03/19/18 7:35 AM 37-year-old male presents to the emergency department with severe right upper back pain. The patient states that he has a history of pulmonary embolism. He says the pain is exactly like his prior PE. He denies any shortness of breath or fever. No cough. He says that approximately 2 years ago after having knee surgery he developed a pulmonary embolism. He had been on Eliquis for 9 months. He is no longer on anticoagulants. He has no drug allergies. His past surgical history significant for knee surgery 2 years ago. He also has a history of anxiety. He is currently on Prozac and Klonopin. Past History Travel History Traveled to [place] past 21 day No Medical History Any Pertinent Medical History? see below for history Neurological: NONE EENT: NONE Cardiovascular: NONE Respiratory: pulmonary embolism Gastrointestinal: NONE Hepatic: NONE Renal: NONE Musculoskeletal: NONE Psychiatric: anxiety, OCD Endocrine: NONE Blood Disorders: NONE Cancer(s): NONE SAMPLE CHECKER/Reproductive: NONE History of MRSA: No History of VRE: No History of CDIFF: No Surgical History Surgical History: LEFT CALF ABSCESS i&d Psychosocial History Who do you live with Patient/Self Services at Home None What is your primary language Russian Tobacco Use: Never used Family History Hx Contributory? No Review of Systems Review of Systems Constitutional: Denies: fever. EENTM: Denies: visual changes. Respiratory: Denies: cough, short of breath. Cardiovascular: Denies: chest pain. GI: Denies: abdominal pain. Genitourinary: Reports: no symptoms. Musculoskeletal: Reports: back pain. Skin: Denies: rash. Neurological/Psychological: Reports: see HPI. Hematologic/Endocrine: Reports: no symptoms. Immunologic/Allergic: Reports: no symptoms. Physical Exam Physical Exam General Appearance: well developed/nourished, alert, awake, anxious Head: atraumatic, normal appearance Eyes: Bilateral: normal appearance, PERRL, EOMI. Ears, Nose, Throat: normal pharynx, normal ENT inspection, hearing grossly normal Neck: normal inspection, supple, full range of motion Respiratory: normal breath sounds, chest non-tender, no respiratory distress Cardiovascular: regular rate/rhythm Peripheral Pulses: 4+ radial (R), 4+ radial (L) Gastrointestinal: soft, non-tender Back: decreased range of motion, muscle spasm (right) Extremities: normal inspection, normal range of motion, no edema Neurologic/Psych: no motor/sensory deficits, awake, alert, oriented x 3 Skin: intact, normal color, warm/dry Core Measures ACS in differential dx? No CVA/TIA Diagnosis: No Sepsis Present: No Sepsis Focused Exam Completed? No Progress Differential Diagnoses I considered the following diagnoses in my evaluation of the patient: [PE, BACK STRAIN, DISC HERNIATION, KIDNEY STONE] Plan of Care: Orders Procedure Date/time Status URINALYSIS 03/19 647 Complete MAGNESIUM 03/19 647 Complete D-DIMER 03/19 647 Complete COMPREHENSIVE METABOLIC PANEL 03/19 647 Complete CBC WITHOUT DIFFERENTIAL 03/19 647 Complete Laboratory Tests 03/19/18 0658: Anion Gap 10, Estimated GFR > 60, BUN/Creatinine Ratio 17.0, Glucose 87, Calcium 9.3, Magnesium 2.1, Total Bilirubin 0.4, AST 22, ALT 26, Alkaline Phosphatase 33 , Total Protein 7.2, Albumin 4.4, Globulin 2.8, Albumin/Globulin Ratio 1.6, D- Dimer High Sensitivty < 200, CBC w Diff NO MAN DIFF REQ, RBC 5.26, MCV 86.4, MCH 29.0, MCHC 33.6, RDW 13.0, MPV 10.3, Gran % 55.3, Lymphocytes % 33.9, Monocytes % 7.9, Eosinophils % 2.4, Basophils % 0.5, Absolute Granulocytes 4.4, Absolute Lymphocytes 2.7, Absolute Monocytes 0.6, Absolute Eosinophils 0.2, Absolute Basophils 0 03/19/18 0655: Urine Color YEL, Urine Clarity CLEAR, Urine pH 6.0, Ur Specific [place] 1.020, Urine Protein NEG, Urine Ketones NEG, Urine Nitrite NEG, Urine Bilirubin NEG, Urine Urobilinogen 0.2, Ur Leukocyte Esterase NEG, Ur Microscopic EXAM NOT REQUIRED, Urine Hemoglobin NEG, Urine Glucose NEG Initial ED EKG: none Departure Departure Disposition: STILL A PATIENT Condition: Stable Clinical Impression Primary Impression: Low back strain Referrals: Fanny JIANG,Christel Tripp (PCP/Family) Departure Forms: Customer Survey General Discharge Information Critical Care Note Critical Care Note Critical Care Time: non-applicable
--- NOTE | 2018-03-19 10:06 | CT SCAN REPORT ---
EXAMINATION: CT CHEST PE STUDY CLINICAL INFORMATION: Right-sided back pain, similar to prior PE. History of PE. COMPARISON: CTA of the chest dated 09/27/2016. TECHNIQUE: Prior to contrast administration, localization images were obtained. After the administration of 95 mL of intravenous Optiray 320, multidetector CT volume acquisition of the chest was performed. 3-D postprocessing was performed with multiplanar reconstructions and MIP images obtained at the acquisition workstation under concurrent physician supervision. DLP: 480.27 mGy-cm. FINDINGS: Pulmonary arteries: The bolus timing on this study is slightly delayed, but acceptable for visualization of the pulmonary arterial tree. Evaluation is limited by extensive beam hardening artifact extending through the pulmonary arteries. There are no intraluminal pulmonary arterial filling defects seen to suggest pulmonary embolism in the main pulmonary artery, right and left main pulmonary artery, and lobar branches. In the right posterior basal segmental pulmonary artery branch, relative hypoenhancement is seen (series 2, image 223). This is difficult to assess given extensive linear beam hardening artifact through this region, most readily apparent when viewed on the coronally reconstructed sequences (coronal series 203, images 17 through 24). No other significant pulmonary arterial filling defects are seen. Lungs: Bilateral dependent atelectatic changes are seen in the lower lobes. A few linear areas of scattered atelectasis are also seen in the remainder of the lungs. No pulmonary nodules, masses, pleural effusion or pneumothorax. The central airways are patent. There is suspicion of mild centrilobular emphysema. Aorta and heart: The heart is normal in size. The mediastinum, aorta and great vessels are normal. 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 There is no lymphadenopathy. Upper abdomen: Limited evaluation of the upper abdominal viscera demonstrates no focal abnormality. Bones: Small vertebral hemangioma is seen posteriorly within the T8 vertebral body. IMPRESSION: 1. No evidence of central pulmonary embolism in the main pulmonary artery, right and left main pulmonary arteries and lobar pulmonary arteries. As discussed above, there is subtle hypoenhancement noted in the posterior basal segmental branch in the right lower lobe, most consistent with beam hardening artifact. Remainder of the segmental pulmonary artery branches are unremarkable. 2. Mild dependent atelectatic changes in both lower lobes. 3. Mild centrilobular emphysema. 4. Soft tissue density in the anterosuperior mediastinum, consistent with thymic hyperplasia or residual thymic tissue. VTE: Negative.
[2018-03-19 10:15] VITALS: BP 124/84
== END 2018-03-19 10:16 ==
LOC: ERH 06:31
PROVIDERS: Emergency Medicine
DX: S39.012A Strain of muscle, fascia and tendon of lower back, initial encounter (principal); M54.6 Pain in thoracic spine; F41.9 Anxiety disorder, unspecified
CPT/HCPCS: 81003